=== PATIENT | female | born 1950 | race Caucasian/White ===

== ENCOUNTER 2016-12-21 10:40 | Emergency (ER) | payer OTHER ==
[~2016-12-21] VITALS: Ht 154.9 cm; Wt 52.5 kg
[2016-12-21 10:49] VITALS: Ht 154.9 cm; Wt 52.5 kg
[2016-12-21 11:13] LABS: URINE BLOOD (Dip) POC Trace-intact (NEGATIVE)
[2016-12-21] MEDS ORDERED: PHENAZOPYRIDINE 100 MG TAB PO STA (11:15)
[2016-12-21] MEDS ORDERED: CEPHALEXIN 500 MG CAP PO STA (11:15)
[2016-12-21] MEDS ORDERED: CEPH-443 PO (11:18)
[2016-12-21] MEDS ORDERED: PHEN-538 PO (11:18)
--- NOTE | 2016-12-21 11:56 | ERD ---
ER Documentation Chief Complaint Date/Time DATE: 12/21/16 TIME: 11:52 Chief Complaint vaginal pain,scant vaginal bleeding x3 days HPI This is a 66-year-old female with a history of osteoporosis and hyperlipidemia presenting to the emergency department complaining of vaginal pain and painful urination for the past 3 days. Patient states that she noticed mild hematuria last night. Patient admits to having pressure-like pelvic pain rating it moderate in severity. She denies any fevers or flank pain. Patient states that she has not tried any medications today, she took Tylenol last night without any relief. She denies any vaginal discharge ROS All systems reviewed and are negative except as per history of present illness. Medications Home Meds Active Scripts Phenazopyridine Hcl* (Pyridium*) 200 Mg Tab, 200 MG PO TID Y for URINARY PAIN, # 6 TAB Prov:REYES DIANE PA-C 12/21/16 Cephalexin* (Keflex*) 500 Mg Capsule, 500 MG PO QID for 7 Days, CAP Prov:REYES DIANE PA-C 12/21/16 Allergies Allergies: Coded Allergies: No Known Allergy (Unverified , 12/21/16) PMhx/Soc Medical and Surgical Hx: pt denies Medical Hx, pt denies Surgical Hx Hx Alcohol Use: No Hx Substance Use: No Hx Tobacco Use: No Physical Exam Vitals Vital Signs Date Time Temp Pulse Resp B/P Pulse Ox O2 Delivery O2 Flow Rate FiO2 12/21/16 10:49 98.1 88 18 124/68 98 Physical Exam General: well-developed/well-nourished, in no apparent distress, non-toxic appearing HENT: NC/AT Eyes: Conjunctiva normal Neck: Supple Pulm: CTA bilaterally, normal breathing CV: Normal S1S2 GI: Soft, non-distended, normal bowel sounds, TTP on suprapubic region Back: No midline tenderness, no masses, No CVAT Ext: No clubbing, cyanosis, or edema Neuro: Alert and orientated Skin: intact, normal turgor Psych: Normal mood and mentation Results 24 hrs Laboratory Tests Test 12/21/16 11:13 Bedside Urine pH (LAB) 7.0 Bedside Urine Protein (LAB) Negative Bedside Urine Glucose (UA) Negative Bedside Urine Ketones (LAB) Negative Bedside Urine Blood Trace-intact Bedside Urine Nitrite (LAB) Negative Bedside Urine Leukocyte Esterase (L 1+ Current Medications Medications (Trade) Dose Ordered Sig/Laure Route PRN Reason Start Time Stop Time Status Last Admin Dose Admin Cephalexin (Keflex) 500 mg ONCE STAT PO 12/21/16 11:15 12/21/16 11:17 DC 12/21/16 11:43 Phenazopyridine HCl (Pyridium) 200 mg ONCE STAT PO 12/21/16 11:15 12/21/16 11:17 DC 12/21/16 11:43 Procedures/MDM This is a 66-year-old female with a history of osteoporosis and hyperlipidemia presenting to the emergency department complaining of vaginal pain and painful urination for the past 3 days. This is likely a urinary tract infection. Low suspicion for pyelonephritis, nephrolithiasis, ovarian torsion due to physical examination and diagnostic testing. I have also considered that patient may have uterine prolapse according to her history and I have discussed with her to follow-up with her SUPERVISOR CEREAL for further evaluation and management. Urine dipstick showed +1 leukocyte esterase, and a urine culture was sent out. In the ED patient was given Keflex and Pyridium. Patient was given a prescription for Keflex and Pyridium. Disposition: Patient hemodynamically stable for discharge. Prescriptions have been given to take as directed. Strict precautions were given to return to the ER if not improving as expected or for any worsening signs and symptoms Departure Diagnosis: Primary Impression: UTI (urinary tract infection) Condition: Stable Patient Instructions: Pelvic Organ Prolapse: Surgery for Uterine Prolapse, Understanding Urinary Tract Infections (UTIs) Referrals: [facility]PER[facility] [place] [id number] [facility] [address] [place] [address] [phone] OFFICE FAX HIGINIO BRAND [address] [place], [place] [phone] [place] [place] [address] [place], [place] [phone] ANTHONY ELLER [address] [facility], [facility] [address] [place] [address] MASHA CALIX [address] [place], [place] [phone] CLINICA DEMOTTE [address] [place], [place] [phone] [address] [facility] [id number] - MOUNIKA REED [address], [facility] [address] [address] ALDRICH, DEMETRIS [address] [facility]. [address], [facility] [address] [address] GARCIA, F[place] [address] [place], [place] [phone] [facility] () Usted se martinez hecho un examen mdico de control que le indica que no est en kamille condicin que requiera tratamiento urgente en el Departamento de Emergencia. Un estudio ms profundo y el tratamiento de matamoros condicin pueden esperar sin ningn riesgo hasta que usted sea atendida/o en el consultorio de matamoros mdico o kamille cl yessica. Es responsabilidad suya arreglar kamille citlaly para el seguimiento del mamta. MANEJO DE CONDICIONES NO URGENTES EN EL FUTURO 1) Si usted tiene un mdico de atencin primaria: Usted debera llamar a matamoros mdico de atencin primaria antes de venir al departamento de emergencia. Despus de las horas de consultorio, matamoros doctor o matamoros asociado/a est disponible por telfono. El mdico o enfermero de kennedi en el servicio telefnico puede asesorarle por lilo medio para atender el problema, o mamta contrario se puede programar kamille citlaly. 2) Si usted no tiene un mdico de atencin primaria: Llame al mdico o clnica de referencia que aparece abajo skip las horas de consultorio para hacer kamille citlaly para que le vean. CLINICAS: [facility] [phone] [facility] [phone] [place] [facility] [phone] [place] [address] [phone] [place] [address] [phone] [place] [phone] Additional Instructions: Visite a matamoros mdico maana para un EXAMEN.Regrese a estas instalaciones si no se mejora ilir esperbamos o ilir le dijimos. Specialist:Usted tiene kamille condicin mdica que requiere que kasandra a un especialista dentro de los prximos 1-2 wolfe.POR FAVOR,CON MATAMOROS SEGUIMIENTO DE PRIMARIA PHSICIAN refferal. SI USTED NO TIENE UN MDICO GENERAL Y / O USTED NO PUEDE PAGAR sangeeta a un mdico,los siguientes escudero RECURSOS sido suministrado a usted. ES MATAMOROS RESPONSABILIDAD PARA SER VISTOS POR EL ESPECIALISTA: [place] toda la medicina shayy y ilir se le indic. Regrese a estas instalaciones si no se mejora ilir esperbamos o ilir le dijimos. REYES DIANE PA-C Dec 21, 2016 11:55
[2016-12-21 12:11] VITALS: BP 118/68; PULSE 77; RESP 18
== END 2016-12-21 12:12 | disposition home or self-care (01) ==
LOC: FTE 10:40
DX: N39.0 Urinary tract infection, site not specified (principal)
CPT/HCPCS: 81003; 87086; 99284

== ENCOUNTER 2017-01-09 11:01 | Emergency (ER) | payer OTHER ==
[~2017-01-09] VITALS: Ht 157.5 cm; Wt 53.0 kg
[~2017-01-09 11:01] MED LIST: CEPH-443 PO; PHEN-538 PO
[2017-01-09 11:03] VITALS: Ht 157.5 cm; Wt 53.0 kg
--- NOTE | 2017-01-09 14:03 | ERD ---
ER Documentation Chief Complaint Date/Time DATE: 01/09/17 TIME: 13:56 Chief Complaint Pt dx with UTI X 15 days..finished antibiotics, symptoms persists. HPI Patient is a 66-year-old female with no past medical history who presents to the ED with dysuria on and off for the last 15 days. She states that she was here 2 weeks ago and was given Keflex. She stated that she followed up with her primary care, a CT was ordered as well as a urine and she states that she was given an antibiotic, unsure of the name. She states that she went to [facility] to get a prescription filled. However she states that she still has some mild dysuria and occasional hematuria. She states that her CT scan is read by radiologist was unremarkable and showed hiatal hernia and cholelithiasis. She denies back pain or abdominal pain. She denies nausea, vomiting or diarrhea. She denies chest pain, shortness of breath or difficulty breathing. She denies headache or dizziness. She denies abnormal vaginal discharge. ROS All systems reviewed and are negative except as per history of present illness. Medications Home Meds Active Scripts Nitrofurantoin Monohyd Macrocr* (Macrobid*) 100 Mg Capsr, 100 MG PO BID for 14 Days, CAP Prov:BOBBI VIVEROS PA-C 01/09/17 Phenazopyridine Hcl* (Pyridium*) 200 Mg Tab, 200 MG PO TID Y for URINARY PAIN, # 6 TAB Prov:REYES DIANE PA-C 12/21/16 Cephalexin* (Keflex*) 500 Mg Capsule, 500 MG PO QID for 7 Days, CAP Prov:REYES DIANE PA-C 12/21/16 Allergies Allergies: Coded Allergies: No Known Allergy (Unverified , 12/21/16) PMhx/Soc Medical and Surgical Hx: pt denies Medical Hx, pt denies Surgical Hx History of Surgery: No Anesthesia Reaction: No Hx Neurological Disorder: No Hx Respiratory Disorders: No Hx Cardiac Disorders: No Hx Psychiatric Problems: No Hx Miscellaneous Medical Probl: No Hx Alcohol Use: No Hx Substance Use: No Hx Tobacco Use: No Physical Exam Vitals Vital Signs Date Time Temp Pulse Resp B/P Pulse Ox O2 Delivery O2 Flow Rate FiO2 01/09/17 11:03 98.2 105 18 131/70 98 Physical Exam GENERAL: Well-developed, well-nourished female. Appears in no acute distress. HEAD: Normocephalic, atraumatic. EYES: Pupils are equally reactive bilaterally. EOMs grossly intact. No conjunctival erythema. ENT: Moist mucous membranes. No uvula deviation. No kissing tonsils. No exudates. NECK: Supple. No lymphadenopathy or thyromegaly. No meningismus. negative kernig. negative brudinski. LUNG: Clear to auscultation bilaterally. No rhonchi, wheezing, rales or coarse breath sounds. HEART: Regular rate and rhythm. No murmurs, rubs or gallops. Extremities: Equal pulses bilaterally. No peripheral clubbing, cyanosis or edema. No unilateral leg swelling. NEUROLOGIC: Alert and oriented. Moving all four extremities. 5/5 strength in all extremities. Normal speech. Steady gait. SKIN: Normal color. Warm and dry. No rashes or lesions. Capillary refill < 2 seconds Results 24 hrs Laboratory Tests Test 01/09/17 13:37 Urine Color LT. YELLOW Urine Clarity CLEAR Urine pH 5.5 Urine Specific [place] 1.010 Urine Ketones NEGATIVE Urine Nitrite NEGATIVE Urine Bilirubin NEGATIVE Urine Urobilinogen 0.2 E.U./dL Urine Leukocyte Esterase 1+ Urine Microscopic RBC NONE SEEN/HPF Urine Microscopic WBC 0-2/HPF Urine Squamous Epithelial Cells FEW Urine Hemoglobin NEGATIVE Urine Glucose NEGATIVE% Urine Total Protein NEGATIVE Procedures/MDM ER COURSE: I kept the patient and/or family informed of laboratory and diagnostic imaging results throughout the emergency room course. LABORATORY STUDIES Urinalysis shows 1+ leukocytes with no hematuria or nitrites. MEDICAL DECISION MAKING: This is a 66-year-old female who presents with dysuria on and off 15 days. Vital signs were reviewed. Patient is afebrile. Patient is not hypoxic. Patient 's urine shows. Patient showed me a copy of her CT scan that was performed on . Her CT scan is read by radiologist Dr. NACHO VALLADARES on 12/28/2016 shows no acute findings. Cholelithiasis. Small hiatal hernia. I do not think any further imaging studies or blood work were necessary at this time. Low suspicion for ovarian torsion, PID, tuboovarian abscess, ectopic , bowel obstruction, pyelonephritis, appendicitis, cervicitis, septic , molar , HELLP syndromeI called the pharmacist mary hannon where she had received her most recent prescription. I did confirm that she was on Cipro for 10 days. Patient's urinalysis shows 1+ leukocytes with no hematuria or nitrates. I will be treating the patient with Macrobid however patient does need to follow-up with urologist for further evaluation. DISCHARGE: At this time, patient is stable for discharge and outpatient management with no new complaints during the ER course. Patient was sent home with Antwanbinataliya and names of urologists in the area that patient can follow-up with. Patient will be discharged home with instructions to recheck for new or worsening symptoms such as fever, nausea, weakness, LOC and to follow up with primary care in the next 1-2 days. Patient was advised to return to the ER for any new or worsening symptoms. Plan was discussed and patient and/or family understands and agrees. Home instructions were given. Departure Diagnosis: Primary Impression: Dysuria Condition: Stable BOBBI VIVEROS PA-C January 09, 2017 14:03
[2017-01-09 14:09] LABS: ADD UMIC YES; URINE BILIRUBIN (Dip) NEGATIVE (NEGATIVE); URINE BLOOD (Dip) NEGATIVE (NEGATIVE); URINE COLOR LT. YELLOW (YELLOW); URINE GLUCOSE (Dip) NEGATIVE (NEGATIVE); URINE KETONES (Dip) NEGATIVE (NEGATIVE); URINE LEUKOCYTE ESTERASE (Dip) 1+ (NEGATIVE); URINE NITRITE (Dip) NEGATIVE (NEGATIVE); URINE TOTAL PROTEIN (Dip) NEGATIVE (NEGATIVE); URINE UROBILINOGEN (Dip) 0.2 E.U./dL (0.1-1.0)
[2017-01-09 14:20] LABS: SQUAMOUS EPITHELIAL CELL,UR FEW; URINE RBCS NONE SEEN /HPF (0)
[2017-01-09] MEDS ORDERED: NITR-58 PO (14:32)
== END 2017-01-09 14:33 | disposition home or self-care (01) ==
LOC: FTE 11:01
DX: R30.0 Dysuria (principal)
CPT/HCPCS: 81001; 81003; 87086; 99283

== ENCOUNTER 2017-02-12 04:20 | Emergency (ER) | payer OTHER ==
[~2017-02-12] VITALS: Ht 157.5 cm; Wt 52.7 kg
[~2017-02-12 04:20] MED LIST changes: +NITR-58 PO
[2017-02-12 04:23] VITALS: Ht 157.5 cm; Wt 52.7 kg
[2017-02-12] MEDS ORDERED: morphine 4 MG/ML VIAL IV STA (04:36)
[2017-02-12] MEDS ORDERED: ONDANSETRON 4 MG INJ IV STA (04:36)
[2017-02-12] MEDS ORDERED: SOD CHLORIDE 0.9% 1,000 ML IV STA (04:36)
[2017-02-12] MEDS ORDERED: FAMOTIDINE 20 MG INJ IV STA (04:36)
[2017-02-12 05:14] LABS: ADD SCAN DIFF NO
[2017-02-12 05:21] LABS: BASOPHILS % 0.3 % (0.0-2.0); EOSINOPHILS # 0.1 10^3/ul (0.0-0.5); EOSINOPHILS % 1.3 % (0.0-7.0); HEMATOCRIT 42.3 % (37.0-47.0); HEMOGLOBIN 14.1 g/dl (12.0-16.0); LYMPHOCYTES # 2.8 10^3/ul (0.8-2.9); LYMPHOCYTES % 26.1 % (15.0-51.0); MEAN CORPUSCULAR HEMOGLOBIN 29.1 pg (29.0-33.0); MEAN CORPUSCULAR HGB CONC 33.3 g/dl (32.0-37.0); MEAN CORPUSCULAR VOLUME 87.4 fl (82.0-101.0); MEAN PLATELET VOLUME 9.6 fl (7.4-10.4); MONOCYTE # 0.6 10^3/ul (0.3-0.9); MONOCYTES % 5.8 % (0.0-11.0); NEUTROPHILS % 66.2 % (39.0-77.0); PLATELET COUNT 361 10^3/UL (140-415); RED BLOOD COUNT 4.84 10^6/ul (4.20-5.40); RED CELL DISTRIBUTION WIDTH 12.5 % (11.5-14.5); WHITE BLOOD COUNT 10.5 10^3/ul (4.8-10.8)
[2017-02-12] MEDS ORDERED: HYDROmorphONE 1 MG/ML SYG IV PRN (05:30)
[2017-02-12] MEDS ORDERED: DEXTROSE 50% 50 ML SYRINGE IV PRN (05:30)
[2017-02-12 05:40] LABS: ALBUMIN 5.2 g/dl (3.3-4.9); ALBUMIN/GLOBULIN RATIO 1.48; BILIRUBIN,INDIRECT 0.3 mg/dl (0-1.1); BILIRUBIN,TOTAL 0.3 mg/dl (0.2-1.3); CALCIUM 9.7 mg/dl (8.4-10.2); CREATININE 0.72 mg/dl (0.44-1.00); POTASSIUM 3.5 mmol/L (3.5-5.1); TOTAL PROTEIN 8.7 g/dl (6.1-8.1)
--- NOTE | 2017-02-12 05:40 | ERD ---
ER Documentation Chief Complaint Date/Time DATE: 02/12/17 TIME: 05:34 Chief Complaint RT FLANK PAIN X 3 DAYS, NAUSEA, DYSURIA/RETENTION. CHOLECYSTECTOMY 02/09 HPI This is a 66-year-old female presents to the emergency room for evaluation of abdominal pain, flank pain nausea and vomiting for the past 3 days. This patient does state that she has a history of uterine prolapse. The patient is lying trauma to the area, denies any active bleeding from the site and came to the emergency room for evaluation. ROS All systems reviewed and are negative except as per history of present illness. Medications Home Meds Active Scripts Nitrofurantoin Monohyd Macrocr* (Macrobid*) 100 Mg Capsr, 100 MG PO BID for 14 Days, CAP Prov:BOBBI VIVEROS PA-C 01/09/17 Phenazopyridine Hcl* (Pyridium*) 200 Mg Tab, 200 MG PO TID Y for URINARY PAIN, # 6 TAB Prov:REYES DIANE PA-C 12/21/16 Cephalexin* (Keflex*) 500 Mg Capsule, 500 MG PO QID for 7 Days, CAP Prov:REYES DIANEC 12/21/16 Allergies Allergies: Coded Allergies: No Known Allergy (Unverified , 12/21/16) PMhx/Soc History of Surgery: No Anesthesia Reaction: No Hx Neurological Disorder: No Hx Respiratory Disorders: No Hx Cardiac Disorders: No Hx Psychiatric Problems: No Hx Miscellaneous Medical Probl: Yes (prolapse,cholecystitis) Hx Alcohol Use: No Hx Substance Use: No Hx Tobacco Use: No Smoking Status: Never smoker Physical Exam Vitals Vital Signs Date Time Temp Pulse Resp B/P Pulse Ox O2 Delivery O2 Flow Rate FiO2 02/12/17 04:23 98.0 150 22 172/112 96 Physical Exam INITIAL VITAL SIGNS: Reviewed by me GENERAL: The patient is well developed and appropriate for usual state of health in no apparent distress HEENT: Pupils equal, round, and reactive to light. EOMI. There is no scleral icterus. NECK: C-spine is soft and supple, there is no meningismus. There is no cervical lymphadenopathy. LUNGS: Clear to auscultation bilaterally. There are no rales, wheezes or rhonchi. HEART: Regular rate and rhythm, no murmurs, clicks, rubs or gallops. ABDOMEN: Soft, non-tender, non-distended. There are bowel sounds in all four quadrants. No rebound or guarding. EXTREMITIES: There is no peripheral cyanosis or edema. No focal swelling or erythema. NEUROLOGICAL: The patient moves all four extremities with 5/5 strength. Cranial nerves II - XII are intact. Normal gait. Alert and oriented SKIN: There is no apparent rash or petechiae. exam: Prolapsed uterus protruding through the vaginal introitus HEME/LYMPHATIC: There is no evidence of excessive bruising or lymphedema. PSYCHIATRIC: The patient does not appear anxious or depressed. Results 24 hrs Current Medications Medications (Trade) Dose Ordered Sig/Laure Route PRN Reason Start Time Stop Time Status Last Admin Dose Admin Sodium Chloride (NS) 1,000 ml @ 1,000 mls/hr Q1H STAT IV 02/12/17 04:36 02/12/17 05:35 02/12/17 04:53 Morphine Sulfate (morphine) 4 mg ONCE STAT IV 02/12/17 04:36 02/12/17 04:38 DC 02/12/17 04:52 Ondansetron HCl (Zofran Inj) 4 mg ONCE STAT IV 02/12/17 04:36 02/12/17 04:38 DC 02/12/17 04:51 Famotidine (Pepcid Iv) 20 mg ONCE STAT IV 02/12/17 04:36 02/12/17 04:39 DC 02/12/17 04:51 Hydromorphone HCl (Dilaudid) 1 mg Q3 PRN IV PAIN LEVEL 7-10 02/12/17 05:30 02/12/17 05:30 DC Dextrose (D50w Syringe) 25 ml PRN PRN IV DECREASED GLUCOSE 02/12/17 05:30 02/12/17 05:30 DC Procedures/MDM CT abdomen pelvis without: Pending This is a 66-year-old female presents to the emergency room for evaluation of pelvic pain. I did a pelvic examination on this patient she did have uterine prolapse. This patient was in extreme amount of pain. I did give this patient morphine and lab work was obtained. This patient does state that she has seen a specialist in [place] for this and supposed to have a scheduled surgery in the future as an unknown date. Lab work was obtained which is within normal limits at this time. CT of the abdomen and pelvis was also ordered and is pending at this time. I did contact her BIOPHYSICS TEACHER specialist Dr. miner who agrees to come evaluate this patient here in the emergency room. This patient' s CAT scan will be signed out to the oncoming physician Dr. Abad for final disposition. Departure Diagnosis: Primary Impression: Uterine prolapse Additional Impression: Flank pain Condition: Stable MANISHA KUMAR DO Feb 12, 2017 05:39
[2017-02-12 05:52] LABS: ADD UMIC YES; UR BILIRUBIN (Dip) NEGATIVE (NEGATIVE); UR BLOOD (Dip) TRACE (NEGATIVE); UR CLARITY CLEAR (CLEAR); UR COLOR LT. YELLOW (YELLOW); UR GLUCOSE (Dip) NEGATIVE (NEGATIVE); UR KETONES (Dip) NEGATIVE (NEGATIVE); UR LEUKOCYTE ESTERASE (Dip) TRACE (NEGATIVE); UR NITRITE (Dip) NEGATIVE (NEGATIVE); UR TOTAL PROTEIN (Dip) NEGATIVE (NEGATIVE); UR UROBILINOGEN (Dip) 0.2 E.U./dL (0.1-1.0)
[2017-02-12 06:05] LABS: UR SQUAMOUS EPITHELIAL CELL RARE; URINE RBCS 0-2 /HPF (0)
--- NOTE | 2017-02-12 06:08 | QN ---
Documentation Comment 66 yo presents with uterine prolapse. She has had this issue for 2 months and has an appointment for a pessary fitting on Monday with her principal process engineer. She is a poor historian and c/o "severe pain" even after the uterus was replaced. VS: 172/112, 150, 98.0 sono: nml sized uterus prolapsed through vagina; 3.2cm fundal fibroid; atrophic ovaries Abdomen- soft, n/t VE: uterus prolpased; easily replaced PMH- patient denies medical problems and surgeries but is a poor historian. She states she had a UTI and finished abx a week or two ago NKDA A/P: ER physician stated patient is ordered for a CT scan to r/o other sources of the pain Uterus was replaced, but will continue to prolapse until pessary fitting tomorrow; this is an outpatient procedure Reconsult monotype setter if abnormal finidings on CT scan LEEANNA TORRES MD Feb 12, 2017 06:08
[2017-02-12 06:22] VITALS: BP 127/83; PULSE 88; RESP 14
--- NOTE | 2017-02-12 06:29 | RADRPT ---
PROCEDURE: CT Abdomen and pelvis without contrast. CLINICAL INDICATION: Abdominal pain. TECHNIQUE: CT scan of the abdomen and pelvis was performed on a multi-detector high-resolution CT scanner. Contiguous axial images were obtained from the lung bases to the ischial tuberosities wit hout intravenous contrast. Coronal and sagittal reformatted images were also obtained. Images were reviewed on the PACS workstation. One or more of the following dose reduction techniques were used: - Automated exposure control. - Adjustment of the mA and/or kV according to patient size. - Use of iterative reconstruction technique. Exam CTD/vol = 6.32 mGy. Total exam DLP = 352.08 mGy-cm. COMPARISON: None. FINDINGS: Evaluation of the lung bases demonstrates mild bibasilar atelectasis. Abdomen: The liver is normal in size. There is no focal mass or dilatation of the biliary tree. T he gallbladder is not distended. Multiple gallstones are identified. The spleen, pancreas and bilat eral adrenal glands are within normal limits. Bilateral kidneys are normal in size with no contour deforming mass identified. There is no radiopaque renal or ureteral calculus identified. There is moderate dilatation of the right renal pelvis. There is mild dilatation of the left renal pelvis. There is mild hydronephrosis bilaterally. There is no retroperitoneal adenopathy. The abdominal ao rta is of normal caliber with scattered atherosclerotic calcifications. There is moderate retained stool within the colon. There is no bowel obstruction or free air. A no rmal appendix is identified. There are scattered colonic diverticuli without evidence of diverticul itis. There is no ascites. Pelvis: The bladder is moderately distended. The uterus and adnexa are within normal limits. Ther e is no significant pelvic adenopathy or free fluid. Evaluation of the osseous structures demonstrates no suspicious lytic or blastic lesion. IMPRESSION: Bilateral mild hydronephrosis with moderate right and mild left renal pelvis dilatation. There is mo derate distension of the bladder. Bladder decompression is suggested. Moderate retained stool within the colon. Scattered colonic diverticuli without evidence of diverticulitis. Cholelithiasis. Mild bibasilar atelectasis. Vascular calcifications reflective of atherosclerosis. .Piotr Rashid MD, MD Date Time Electronically viewed and signed by .Piotr Rashid MD, MD on 02/12/2017 06:29 .T/
--- NOTE | 2017-02-12 06:57 | EN ---
Date/Time of Note Date/Time of Note DATE: 02/12/17 TIME: 06:55 ER Progress Note Patient was signed out to me by Dr. Rodriguez pending labs and CT abdomen and pelvis. All her labs were within normal limits and there is no evidence of UTI. Her CT did show evidence of mild constipation and mild to moderate hydronephrosis bilaterally. However her renal function is normal. Given her history of uterine prolapse, for which she is to have surgery this week, I suspect her hydronephrosis is secondary to this. At this time the patient is stable and is appropriate for discharge and continued outpatient follow-up and management. Return precautions were given. Her heart rate was initially elevated when she arrived but is improved and within normal limits now. She states her pain is controlled. Patient was discharged in a stable condition with a prescription for MiraLAX. JALEN CARTER MD Feb 12, 2017 06:57
[2017-02-12] MEDS ORDERED: POLY17PO6 PO (06:59)
== END 2017-02-12 08:43 | disposition home or self-care (01) ==
LOC: E/R 04:20
DX: N81.4 Uterovaginal prolapse, unspecified (principal); R40.2252 Coma scale, best verbal response, oriented, at arrival to emergency department; R11.2 Nausea with vomiting, unspecified; R40.2142 Coma scale, eyes open, spontaneous, at arrival to emergency department; R40.2362 Coma scale, best motor response, obeys commands, at arrival to emergency department
CPT/HCPCS: 36415; 74176; 80053; 81001; 83690; 85025; 96374; 96375; 99285; J2270; J2405; J7030

== ENCOUNTER 2017-02-18 15:01 | Emergency (ER) | payer OTHER ==
[~2017-02-18] VITALS: Wt 50.0 kg
[~2017-02-18 15:01] MED LIST changes: +POLY17PO6 PO
[2017-02-18] MEDS ORDERED: CEFTRIAXONE 1 GM/50 ML (PMX) 50 ML IVPB STA (15:42)
[2017-02-18] MEDS ORDERED: SOD CHLORIDE 0.9% 1,000 ML IV STA (15:42)
[2017-02-18] MEDS ORDERED: [UNRECOGNIZED DRUG - CODE] PO (15:58)
[2017-02-18] MEDS ORDERED: ACET1TAB40 PO (15:58)
[2017-02-18] MEDS ORDERED: OXYC-279 PO (15:58)
--- NOTE | 2017-02-18 16:13 | ERA ---
ER Documentation Chief Complaint Date/Time DATE: 02/18/17 TIME: 16:10 Chief Complaint unable to urinate x3 hours had cholecystectomy 02/17 HPI 66-year-old woman presents with suprapubic discomfort and swelling 1 day and complains of urinary retention. She is status post laparoscopic cholecystectomy a few days ago. She also has a history of uterine prolapse. She denies vaginal bleeding or vaginal discharge, no blood per rectum or melena , no complaints of chest pain or shortness of breath, no fevers or chills. ROS All systems reviewed and are negative except as per history of present illness. Medications Home Meds Active Scripts Naproxen* (Naprosyn*) 500 Mg Tablet, 500 MG PO BID Y for PAIN AND/OR INFLAMMATION, #30 TAB Prov:HERMINIO ROMERO MD 02/18/17 Reported Medications Oxycodone HCl/Acetaminophen (Percocet 5-325 mg Tablet) 1 Each Tablet, 1 EACH PO Q6 Y for SEVERE PAIN LEVEL 7-10, TAB 02/18/17 Acetaminophen with Codeine (Acetaminophen-Cod #3 Tablet) 1 Each Tablet, 1 TAB PO Q6H Y for SEVERE PAIN LEVEL 7-10, #7 TAB 02/18/17 Ampicillin* (Ampicillin*) 250 Mg Capsule, 250 MG PO Q8, CAP 02/18/17 Discontinued Scripts Polyethylene Glycol* (Miralax*) 17 Gm Powd.pack, 17 GM PO DAILY, #20 Prov:JALEN CARTER MD 02/12/17 Nitrofurantoin Monohyd Macrocr* (Macrobid*) 100 Mg Capsr, 100 MG PO BID for 14 Days, CAP Prov:BOBBI VIVEROS PA-C 01/09/17 Phenazopyridine Hcl* (Pyridium*) 200 Mg Tab, 200 MG PO TID Y for URINARY PAIN, # 6 TAB Prov:REYES DIANE PA-C 12/21/16 Cephalexin* (Keflex*) 500 Mg Capsule, 500 MG PO QID for 7 Days, CAP Prov:REYES DIANE PA-C 12/21/16 Allergies Allergies: Coded Allergies: No Known Allergy (Unverified , 12/21/16) PMhx/Soc Uterine prolapse, recent cholecystectomy History of Surgery: No Anesthesia Reaction: No Hx Neurological Disorder: No Hx Respiratory Disorders: No Hx Cardiac Disorders: No Hx Psychiatric Problems: No Hx Miscellaneous Medical Probl: Yes (prolapse,cholecystitis) Hx Alcohol Use: No Hx Substance Use: No Hx Tobacco Use: No FmHx Family History: No diabetes Physical Exam Vitals Vital Signs Date Time Temp Pulse Resp B/P Pulse Ox O2 Delivery O2 Flow Rate FiO2 02/18/17 17:26 95 20 138/68 95 Room Air 02/18/17 16:46 105 20 145/77 95 Room Air 02/18/17 15:08 99.5 116 20 149/81 95 Physical Exam GENERAL: Well-developed, well-nourished, well-hydrated, in no apparent distress , looks nontoxic in appearance HEENT: Moist mucous membranes, pink conjunctiva, no cervical spine tenderness or step-off deformities, no goiter, no jaundice or icterus, extraocular movements intact without pain. No submandibular induration, and no pharyngeal erythema NEURO: Alert and oriented 3, cranial nerves II through XII intact bilaterally, pupils equal round reactive to light, no focal deficits or facial asymmetry, sensation intact distally Strength 5/5 in upper and lower extremities bilaterally CARDIAC: Regular rate and rhythm, no murmurs rubs or gallops LUNGS: Clear bilaterally no wheezing crackles or stridor ABDOMEN: Soft nontender, no guarding, no rigidity, no rebound, no psoas sign no obturator sign. Normoactive bowel sounds SKIN: Warm and dry to touch, no abrasions, contusions, or hematomas, no lacerations, no ecchymosis, no target lesions, and without ulcers EXTREMITIES: No clubbing cyanosis or edema, calves are bilaterally symmetrical, no Homans sign, no popliteal cord sign. Distal pulses equal and bilateral PSYCH: Normal affect without agitation or irritability Result Diagram: 02/18/17 1554 02/18/17 1554 Results 24 hrs Laboratory Tests Test 02/18/17 15:47 02/18/17 15:54 Urine Color STRAW Urine Clarity CLEAR Urine pH 7.0 Urine Specific [place] 1.005 Urine Ketones NEGATIVEmg/dL Urine Nitrite NEGATIVEmg/dL Urine Bilirubin NEGATIVEmg/dL Urine Urobilinogen NEGATIVEmg/dL Urine Leukocyte Esterase NEGATIVELeu/ul Urine Hemoglobin NEGATIVEmg/dL Urine Glucose NEGATIVEmg/dL Urine Total Protein NEGATIVEmg/dl White Blood Count 10.610^3/ul Red Blood Count 4.1210^6/ul Hemoglobin 12.3g/dl Hematocrit 37.0% Mean Corpuscular Volume 89.8fl Mean Corpuscular Hemoglobin 29.9pg Mean Corpuscular Hemoglobin Concent 33.2g/dl Red Cell Distribution Width 12.8% Platelet Count 88009^3/UL Mean Platelet Volume 10.0fl Neutrophils % 67.5% Lymphocytes % 21.9% Monocytes % 9.2% Eosinophils % 0.9% Basophils % 0.2% Nucleated Red Blood Cells % 0.0/100WBC Neutrophils # 7.210^3/ul Lymphocytes # 2.310^3/ul Monocytes # 1.010^3/ul Eosinophils # 0.110^3/ul Basophils # 0.010^3/ul Nucleated Red Blood Cells # 0.010^3/ul Sodium Level 142mmol/L Potassium Level 3.5mmol/L Chloride Level 105mmol/L Carbon Dioxide Level 26mmol/L Anion Gap 15 Blood Urea Nitrogen 10mg/dl Creatinine 0.69mg/dl Glucose Level 104mg/dl Calcium Level 9.6mg/dl Current Medications Medications (Trade) Dose Ordered Sig/Laure Route PRN Reason Start Time Stop Time Status Last Admin Dose Admin Sodium Chloride 1,000 ml @ 1,000 mls/hr Q1H STAT IV 02/18/17 15:42 02/18/17 16:41 DC 02/18/17 16:30 Ceftriaxone Sodium 50 ml @ 100 mls/hr ONCE STAT IVPB 02/18/17 15:42 02/18/17 16:11 DC 02/18/17 16:30 Vancomycin HCl (Vancocin) 250 ml @ 125 mls/hr ONCE IVPB 02/18/17 16:30 02/18/17 17:55 DC Ibuprofen (Motrin) 600 mg ONCE ONCE PO 02/18/17 16:30 02/18/17 16:31 DC 02/18/17 16:30 Procedures/MDM IV line was established patient was placed on alarm security or surveillance monitor rhythm strip revealed a sinus rhythm at about 70 bpm with upright P and T waves. Patient was afebrile. Blood and urine cultures have been ordered results are pending I will follow-up. For acute urinary retention a Elise catheter was placed. I reviewed recent urine cultures. Given the patient's symptoms and recent evidence of acute UTI with multiple antibiotic resistances I treated her here with ceftriaxone 1 g IV. Patient also received 1 L normal saline intravenously and ibuprofen 600 mg p.o. CBC was unremarkable, electrolytes normal, urine analysis was completely clear. Elise catheter was removed and patient will follow up with her PMD and surgeon for reevaluation as scheduled. Differential diagnoses considered, included but not limited to acute coronary syndrome, pulmonary embolism, aortic dissection, abdominal aortic aneurysm, sepsis, stroke, meningitis, encephalitis, pneumonia, appendicitis, cholecystitis , bowel obstruction, pyelonephritis, nephrolithiasis, cystitis, as well as metabolic, hematologic, and electrolyte abnormalities. As well as abscess, cellulitis, fractures, and dislocations. Patient feels much better at this time, and vital signs are normal, symptoms have improved. I did give strict instructions to return to the ED if symptoms continue or worsen, patient will otherwise follow-up with primary care physician. Patient understood instructions and agreed to plan. Disclaimer: Inadvertent spelling and grammatical errors are likely due to EHR/ dictation software use and do not reflect on the overall quality of patient care. Also, please note that the electronic time recorded on this note does not necessarily reflect the actual time of the patient encounter. Departure Diagnosis: Primary Impression: Retention of urine Additional Impression: Uterine prolapse Condition: Good HERMINIO ROMERO MD Feb 18, 2017 16:13
[2017-02-18 16:18] LABS: ADD UMIC NO; UR ASCORBIC ACID NEGATIVE (NEGATIVE); UR BILIRUBIN (Dip) NEGATIVE (NEGATIVE); UR BLOOD (Dip) NEGATIVE (NEGATIVE); UR CLARITY CLEAR (CLEAR); UR COLOR STRAW (YELLOW); UR GLUCOSE (Dip) NEGATIVE (NEGATIVE); UR KETONES (Dip) NEGATIVE (NEGATIVE); UR LEUKOCYTE ESTERASE (Dip) NEGATIVE Leu/ul (NEGATIVE); UR NITRITE (Dip) NEGATIVE (NEGATIVE); UR SPECIFIC GRAVITY (Dip) 1.005 (1.003-1.030); UR TOTAL PROTEIN (Dip) NEGATIVE (NEGATIVE); UR UROBILINOGEN (Dip) NEGATIVE (NEGATIVE)
[2017-02-18 16:25] LABS: ADD SCAN DIFF NO
[2017-02-18] MEDS ORDERED: VANCOMYCIN 1 GM (PMX) 250 ML IVPB SCH (16:30)
[2017-02-18] MEDS ORDERED: IBUPROFEN 600 MG TAB PO ONE (16:30)
[2017-02-18 16:31] LABS: BASOPHILS % 0.2 % (0.0-2.0); EOSINOPHILS # 0.1 10^3/ul (0.0-0.5); EOSINOPHILS % 0.9 % (0.0-7.0); HEMOGLOBIN 12.3 g/dl (12.0-16.0); LYMPHOCYTES # 2.3 10^3/ul (0.8-2.9); LYMPHOCYTES % 21.9 % (15.0-51.0); MEAN CORPUSCULAR HEMOGLOBIN 29.9 pg (29.0-33.0); MEAN CORPUSCULAR HGB CONC 33.2 g/dl (32.0-37.0); MEAN CORPUSCULAR VOLUME 89.8 fl (82.0-101.0); MONOCYTES % 9.2 % (0.0-11.0); NEUTROPHIL # 7.2 10^3/ul (1.6-7.5); NEUTROPHILS % 67.5 % (39.0-77.0); PLATELET COUNT 296 10^3/UL (140-415); RED BLOOD COUNT 4.12 10^6/ul (4.20-5.40); RED CELL DISTRIBUTION WIDTH 12.8 % (11.5-14.5); WHITE BLOOD COUNT 10.6 10^3/ul (4.8-10.8)
[2017-02-18 16:50] LABS: CALCIUM 9.6 mg/dl (8.4-10.2); CREATININE 0.69 mg/dl (0.44-1.00); POTASSIUM 3.5 mmol/L (3.5-5.1)
[2017-02-18] MEDS ORDERED: NAPR-260 PO (17:06)
[2017-02-18 17:26] VITALS: BP 138/68; PULSE 95; RESP 20
== END 2017-02-18 17:55 | disposition home or self-care (01) ==
LOC: E/R 15:01
DX: R33.9 Retention of urine, unspecified (principal); N81.4 Uterovaginal prolapse, unspecified
CPT/HCPCS: 36415; 51702; 80048; 81003; 85025; 87040; 87086; 96374; 99284; J0696; J3370; J7030

== ENCOUNTER 2017-02-19 22:04 | Emergency (ER) | payer OTHER ==
[~2017-02-19] VITALS: Ht 157.5 cm; Wt 53.0 kg
[~2017-02-19 22:04] MED LIST changes: +ACET1TAB40 PO; +NAPR-260 PO; +OXYC-279 PO; +[UNRECOGNIZED DRUG - CODE] PO
[2017-02-19 22:13] VITALS: Ht 157.5 cm; Wt 53.0 kg
[2017-02-19] MEDS ORDERED: ONDANSETRON 4 MG INJ IV STA (23:39)
[2017-02-19] MEDS ORDERED: SOD CHLORIDE 0.9% 1,000 ML IV STA (23:39)
[2017-02-19] MEDS ORDERED: morphine 4 MG/ML VIAL IV STA (23:39)
[2017-02-20 00:36] LABS: ADD SCAN DIFF NO
[2017-02-20 00:44] LABS: BASOPHILS % 0.2 % (0.0-2.0); EOSINOPHILS # 0.3 10^3/ul (0.0-0.5); EOSINOPHILS % 3.2 % (0.0-7.0); HEMATOCRIT 37.7 % (37.0-47.0); HEMOGLOBIN 12.2 g/dl (12.0-16.0); LYMPHOCYTES # 2.1 10^3/ul (0.8-2.9); LYMPHOCYTES % 25.9 % (15.0-51.0); MEAN CORPUSCULAR HGB CONC 32.4 g/dl (32.0-37.0); MEAN CORPUSCULAR VOLUME 89.8 fl (82.0-101.0); MEAN PLATELET VOLUME 9.9 fl (7.4-10.4); MONOCYTE # 0.9 10^3/ul (0.3-0.9); MONOCYTES % 10.8 % (0.0-11.0); NEUTROPHIL # 4.9 10^3/ul (1.6-7.5); NEUTROPHILS % 59.5 % (39.0-77.0); PLATELET COUNT 300 10^3/UL (140-415); RED CELL DISTRIBUTION WIDTH 13.1 % (11.5-14.5); WHITE BLOOD COUNT 8.2 10^3/ul (4.8-10.8)
[2017-02-20 00:57] LABS: ADD UMIC YES; UR ASCORBIC ACID NEGATIVE (NEGATIVE); UR BILIRUBIN (Dip) NEGATIVE (NEGATIVE); UR BLOOD (Dip) 3+ mg/dL (NEGATIVE); UR CLARITY CLEAR (CLEAR); UR COLOR STRAW (YELLOW); UR GLUCOSE (Dip) NEGATIVE (NEGATIVE); UR KETONES (Dip) NEGATIVE (NEGATIVE); UR LEUKOCYTE ESTERASE (Dip) TRACE Leu/ul (NEGATIVE); UR NITRITE (Dip) NEGATIVE (NEGATIVE); UR RBC 25 /HPF (0-5); UR SPECIFIC GRAVITY (Dip) 1.006 (1.003-1.030); UR TOTAL PROTEIN (Dip) NEGATIVE (NEGATIVE); UR UROBILINOGEN (Dip) NEGATIVE (NEGATIVE)
--- NOTE | 2017-02-20 01:00 | RADRPT ---
PROCEDURE: CT Abdomen and Pelvis without contrast. CLINICAL INDICATION: Abdominal pain. TECHNIQUE: A CT scan of the abdomen and pelvis was performed without intravenous contrast. Galdamez l and sagittal reformatted images were generated. Images were reviewed on a high-resolution PACS wor kstation. CTDIvol: 6.80 mGy. DLP: 364.62 mGy-cm. One or more of the following dose reduction techniques were used: - Automated exposure control. - Adjustment of the mA and/or kV according to patient size. - Use of iterative reconstruction technique. COMPARISON: 02/12/2017 FINDINGS: There is mild atelectasis in both lower lobes. Evaluation of the abdominal and pelvic viscera is limited by the lack of oral and intravenous contra st. The liver is unremarkable. The patient is status post cholecystectomy. The common bile duct is not dilated. The spleen is not enlarged. No pancreatic lesion is identified and there is no pancreatic d uctal dilatation. The adrenal glands are unremarkable. The kidneys are normal in size. There is no perinephric fat stranding. There is moderate bilateral h ydroureteronephrosis down to the urinary bladder, increased since the prior examination. No obstruct ing stone or mass is identified. There is a Elise catheter in place within the urinary bladder. The re is marked pelvic floor descent with inferior displacement of the urinary bladder, vagina, and rec alem below the pubococcygeal line. The small and large bowel are normal in caliber. There is no bowel wall thickening.There is minimal descending and sigmoid colon diverticulosis. The appendix is normal. No lymphadenopathy is identified. There is no ascites. No pneumoperitoneum is seen. There are mild t o moderate arterial calcifications. No suspicious osseous lesion is idenitified. There is grade 1 degenerative L5 anterolisthesis. IMPRESSION: 1. Moderate bilateral hydroureteronephrosis down to the urinary bladder, increased since the prior examination. No obstructing stone or mass is identified. 2. Marked pelvic floor descent with inferior displacement of the urinary bladder, vagina, and rectu m below the pubococcygeal line. This likely represents the etiology of the ureteral obstructions. 3. Elise catheter in place within the urinary bladder. 4. Status post cholecystectomy. 5. Mild to moderate atherosclerotic arterial calcifications. RPTAT: HTAR .Rasta Naranjo MD, MD Date Time Electronically viewed and signed by .Rasta Naranjo MD, on 02/20/2017 01:00 .R/
[2017-02-20 01:05] LABS: ALBUMIN 4.5 g/dl (3.3-4.9); ALBUMIN/GLOBULIN RATIO 1.36; BILIRUBIN,INDIRECT 0.1 mg/dl (0-1.1); BILIRUBIN,TOTAL 0.1 mg/dl (0.2-1.3); CREATININE 0.66 mg/dl (0.44-1.00); POTASSIUM 3.9 mmol/L (3.5-5.1); TOTAL PROTEIN 7.8 g/dl (6.1-8.1)
[2017-02-20 01:16] LABS: INR 0.88; PROTIME 11.9 Sec (12.2-14.2); PT RATIO 0.9
[2017-02-20 01:17] LABS: PARTIAL THROMBOPLASTIN TIME 27.2 Sec (25.0-35.0)
[2017-02-20] MEDS ORDERED: HYDR-902 PO (01:56)
[2017-02-20] MEDS ORDERED: CIPR500T4 PO (01:56)
--- NOTE | 2017-02-20 02:19 | ERD ---
ER Documentation Chief Complaint Date/Time DATE: 02/20/17 TIME: 02:09 Chief Complaint abd/vaginal pain x 2 days. Dimple 2 days ago HPI 66-year-old female who comes in abdominal bowel movement for 2 days. Cholecystectomy done 2 days ago. Elise cath in place secondary to urine retention 1 day ago. Continues to have pain in her bladder region. No other current complaints. Pain mild to moderate intensity. ROS All systems reviewed and are negative except as per history of present illness. Medications Home Meds Active Scripts Hydrocodone/Acetaminophen ([place] 10-325 Tablet) 1 Each Tablet, 1 TAB PO Q6H Y for PAIN, #7 TAB Prov:ARYAN SHORE 02/20/17 Ciprofloxacin Hcl* (Ciprofloxacin Hcl*) 500 Mg Tablet, 500 MG PO BID for 5 Days , TAB Prov:ARYAN SHORE 02/20/17 Naproxen* (Naprosyn*) 500 Mg Tablet, 500 MG PO BID Y for PAIN AND/OR INFLAMMATION, #30 TAB Prov:HERMINIO ROMERO MD 02/18/17 Reported Medications Oxycodone HCl/Acetaminophen (Percocet 5-325 mg Tablet) 1 Each Tablet, 1 EACH PO Q6 Y for SEVERE PAIN LEVEL 7-10, TAB 02/18/17 Acetaminophen with Codeine (Acetaminophen-Cod #3 Tablet) 1 Each Tablet, 1 TAB PO Q6H Y for SEVERE PAIN LEVEL 7-10, #7 TAB 02/18/17 Ampicillin* (Ampicillin*) 250 Mg Capsule, 250 MG PO Q8, CAP 02/18/17 Discontinued Scripts Polyethylene Glycol* (Miralax*) 17 Gm Powd.pack, 17 GM PO DAILY, #20 Prov:JALEN CARTER MD 02/12/17 Nitrofurantoin Monohyd Macrocr* (Macrobid*) 100 Mg Capsr, 100 MG PO BID for 14 Days, CAP Prov:BOBBI VIVEROS PA-C 01/09/17 Phenazopyridine Hcl* (Pyridium*) 200 Mg Tab, 200 MG PO TID Y for URINARY PAIN, # 6 TAB Prov:REYES DIANE PA-C 12/21/16 Cephalexin* (Keflex*) 500 Mg Capsule, 500 MG PO QID for 7 Days, CAP Prov:REYES DIANE PA-C 12/21/16 Allergies Allergies: Coded Allergies: No Known Allergy (Unverified , 12/21/16) PMhx/Soc History of Surgery: Yes (s/p lap dimple 02/17/17) Anesthesia Reaction: No Hx Neurological Disorder: No Hx Respiratory Disorders: No Hx Cardiac Disorders: No Hx Psychiatric Problems: No Hx Miscellaneous Medical Probl: Yes (prolapse,) Hx Alcohol Use: No Hx Substance Use: No Hx Tobacco Use: No Smoking Status: Never smoker Physical Exam Vitals Vital Signs Date Time Temp Pulse Resp B/P Pulse Ox O2 Delivery O2 Flow Rate FiO2 02/19/17 22:13 98.1 120 18 158/90 94 Physical Exam Const: [] Head: Atraumatic Eyes: Normal Conjunctiva ENT: Normal External Ears, Nose and Mouth. Neck: Full range of motion..~ No meningismus. Resp: Clear to auscultation bilaterally Cardio: Regular rate and rhythm, no murmurs Abd: Soft, non tender, non distended. Normal bowel sounds Skin: No petechiae or rashes Back: No midline or flank tenderness Ext: No cyanosis, or edema Neur: Awake and alert Psych: Normal Mood and Affect Result Diagram: 02/19/17 2354 02/19/17 2354 Results 24 hrs Laboratory Tests Test 02/19/17 23:54 White Blood Count 8.210^3/ul Red Blood Count 4.2010^6/ul Hemoglobin 12.2g/dl Hematocrit 37.7% Mean Corpuscular Volume 89.8fl Mean Corpuscular Hemoglobin 29.0pg Mean Corpuscular Hemoglobin Concent 32.4g/dl Red Cell Distribution Width 13.1% Platelet Count 90406^3/UL Mean Platelet Volume 9.9fl Neutrophils % 59.5% Lymphocytes % 25.9% Monocytes % 10.8% Eosinophils % 3.2% Basophils % 0.2% Nucleated Red Blood Cells % 0.0/100WBC Neutrophils # 4.910^3/ul Lymphocytes # 2.110^3/ul Monocytes # 0.910^3/ul Eosinophils # 0.310^3/ul Basophils # 0.010^3/ul Nucleated Red Blood Cells # 0.010^3/ul Prothrombin Time 11.9Sec Prothrombin Time Ratio 0.9 INR International Normalized Ratio 0.88 Activated Partial Thromboplast Time 27.2Sec Urine Color STRAW Urine Clarity CLEAR Urine pH 6.0 Urine Specific [place] 1.006 Urine Ketones NEGATIVEmg/dL Urine Nitrite NEGATIVEmg/dL Urine Bilirubin NEGATIVEmg/dL Urine Urobilinogen NEGATIVEmg/dL Urine Leukocyte Esterase TRACELeu/ul Urine Microscopic RBC 25/HPF Urine Microscopic WBC 2/HPF Urine Hemoglobin 3+mg/dL Urine Glucose NEGATIVEmg/dL Urine Total Protein NEGATIVEmg/dl Sodium Level 134mmol/L Potassium Level 3.9mmol/L Chloride Level 99mmol/L Carbon Dioxide Level 26mmol/L Anion Gap 13 Blood Urea Nitrogen 12mg/dl Creatinine 0.66mg/dl Glucose Level 101mg/dl Calcium Level 10.0mg/dl Total Bilirubin 0.1mg/dl Direct Bilirubin 0.00mg/dl Indirect Bilirubin 0.1mg/dl Aspartate Amino Transf (AST/SGOT) 140IU/L Alanine Aminotransferase (ALT/SGPT) 103IU/L Alkaline Phosphatase 129IU/L Total Protein 7.8g/dl Albumin 4.5g/dl Globulin 3.30g/dl Albumin/Globulin Ratio 1.36 Lipase 85U/L Current Medications Medications (Trade) Dose Ordered Sig/Laure Route PRN Reason Start Time Stop Time Status Last Admin Dose Admin Sodium Chloride (NS) 1,000 ml @ 1,000 mls/hr Q1H STAT IV 02/19/17 23:39 02/20/17 00:38 DC 02/20/17 00:00 Morphine Sulfate (morphine) 4 mg ONCE STAT IV 02/19/17 23:39 02/19/17 23:40 DC 02/20/17 00:00 Ondansetron HCl (Zofran Inj) 4 mg ONCE STAT IV 02/19/17 23:39 02/19/17 23:40 DC 02/20/17 00:00 Procedures/MDM Medical decision-makin for female pelvic pain. CT shows no new findings. Patient be discharged from [facility]. Follow-up with PCP. Return 8 hours for serial abdominal exams. Departure Diagnosis: Primary Impression: Retention of urine Condition: Stable Patient Instructions: Urinary Retention, Female MONEARYAN MacarioJakob Feb 20, 2017 02:18
== END 2017-02-20 02:49 | disposition home or self-care (01) ==
LOC: E/R 22:04
DX: R33.9 Retention of urine, unspecified (principal)
CPT/HCPCS: 36415; 74176; 80053; 81001; 83690; 85025; 85610; 85730; 87086; 96374; 96375; 99285; J2270; J2405; J7030

== ENCOUNTER 2017-03-27 12:02 | Emergency (ER) | payer OTHER ==
[~2017-03-27] VITALS: Wt 51.5 kg
[~2017-03-27 12:02] MED LIST changes: -CEPH-443 PO; +CIPR500T4 PO; +HYDR-902 PO; -NITR-58 PO; -PHEN-538 PO; -POLY17PO6 PO
[2017-03-27] MEDS ORDERED: OMEP20CA16 PO (16:04)
[2017-03-27] MEDS ORDERED: SIMV20TA PO (16:05)
[2017-03-27] MEDS ORDERED: ALEN70TA30 PO (16:06)
[2017-03-27 16:07] LABS: BASOPHILS % 0.4 % (0.0-2.0); EOSINOPHILS # 0.3 10^3/ul (0.0-0.5); EOSINOPHILS % 4.3 % (0.0-7.0); HEMATOCRIT 39.7 % (37.0-47.0); HEMOGLOBIN 13.3 g/dl (12.0-16.0); LYMPHOCYTES # 2.3 10^3/ul (0.8-2.9); LYMPHOCYTES % 33.4 % (15.0-51.0); MEAN CORPUSCULAR HEMOGLOBIN 29.6 pg (29.0-33.0); MEAN CORPUSCULAR HGB CONC 33.5 g/dl (32.0-37.0); MEAN CORPUSCULAR VOLUME 88.4 fl (82.0-101.0); MEAN PLATELET VOLUME 9.7 fl (7.4-10.4); MONOCYTE # 0.6 10^3/ul (0.3-0.9); NEUTROPHIL # 3.8 10^3/ul (1.6-7.5); NEUTROPHILS % 53.6 % (39.0-77.0); PLATELET COUNT 233 10^3/UL (140-415); RED BLOOD COUNT 4.49 10^6/ul (4.20-5.40); RED CELL DISTRIBUTION WIDTH 12.8 % (11.5-14.5)
[2017-03-27 16:28] LABS: ALANINE AMINOTRANSFERASE 30 IU/L (13-69); ALBUMIN 4.7 g/dl (3.3-4.9); ALBUMIN/GLOBULIN RATIO 1.38; ALKALINE PHOSPHATASE 98 IU/L (42-121); ANION GAP 21 (8-16); ASPARTATE AMINO TRANSFERASE 30 IU/L (15-46); BILIRUBIN,INDIRECT 0.1 mg/dl (0-1.1); BILIRUBIN,TOTAL 0.1 mg/dl (0.2-1.3); BLOOD UREA NITROGEN 17 mg/dl (7-20); CALCIUM 9.4 mg/dl (8.4-10.2); CARBON DIOXIDE 21 mmol/L (21-31); CHLORIDE 107 mmol/L (97-110); CREATINE KINASE 46 IU/L (23-200); GLUCOSE 93 mg/dl (70-220); POTASSIUM 3.8 mmol/L (3.5-5.1); SODIUM 145 mmol/L (135-144); TOTAL PROTEIN 8.1 g/dl (6.1-8.1)
[2017-03-27 16:38] LABS: B-TYPE NATRIURETIC PEPTIDE 39 PG/ML (0-125); CK-MB 0.58 ng/ml (0.0-2.4)
--- NOTE | 2017-03-27 16:40 | RADRPT ---
PROCEDURE: CT brain without contrast CLINICAL INDICATION: Numbness, headaches TECHNIQUE: CT of the brain without contrast performed on a multidetector CT scanner, with multiplan ar reformats. One or more of the following dose reduction techniques were used: Automated exposure control, adjustment in mA and / or kV according to patient size, use of iterative reconstructive jamison hnique. CTDIvol = 44 mGy; DLP = 720 mGy-cm. COMPARISON: None available FINDINGS: No acute intracranial hemorrhage is identified. No extra-axial fluid collection is seen. There is no mass effect. No midline shift is identified. The ventricles and sulci are mildly enlarged compatible with generalized volume loss. Minimal areas of hypodensity are seen in the periventricular - deep white matter which are nonspecif ic but suggestive of chronic small vessel ischemic changes. Chavez-white differentiation is preserved . Atherosclerotic calcifications of the intracranial internal carotid arteries are noted. Osseous structures are unremarkable. Mastoid air cells and imaged paranasal sinuses grossly clear. IMPRESSION: 1. No evidence of acute intracranial pathology. 2. Mild generalized volume loss, with minimal chronic small vessel ischemic changes. RPTAT: VV .Ismael Butterfield MD, MD Date Time Electronically viewed and signed by .Ismael Butterfield MD, MD on 03/27/2017 16:39 .O/
[2017-03-27 16:41] LABS: INR 0.9; PROTIME 12.1 Sec (12.2-14.2); PT RATIO 0.9
[2017-03-27 16:42] LABS: PARTIAL THROMBOPLASTIN TIME 25.8 Sec (25.0-35.0); TROPONIN-I < 0.012 ng/ml (0.00-0.12)
[2017-03-27] MEDS ORDERED: SOD CHLORIDE 0.9% 1,000 ML IV STA (17:10)
[2017-03-27] MEDS ORDERED: KETOROLAC 30 MG INJ IV STA (17:10)
[2017-03-27] MEDS ORDERED: ONDANSETRON 4 MG INJ IV STA (17:10)
--- NOTE | 2017-03-27 17:10 | RADRPT ---
PROCEDURE: XR Chest. CLINICAL INDICATION: Chest pain. TECHNIQUE: Single frontal view. COMPARISON: No prior study is available for comparison. FINDINGS: The lungs are clear. The heart size is normal. There is calcification in the aorta consistent with atherosclerosis. There is no pleural effusion. There is no pneumothorax. IMPRESSION: 1. Atherosclerosis. 2. Otherwise normal chest x-ray. RPTAT: QQ .Mike Barros MD, MD Date Time Electronically viewed and signed by .Mike Barros MD, on 03/27/2017 17:10 .R/
--- NOTE | 2017-03-27 17:10 | ERD ---
ER Documentation Chief Complaint Date/Time DATE: 03/27/17 TIME: 17:03 Chief Complaint DIZZINESS, NUMBNESS L ARM, L SIDE FACE X 2 DAYS; BILATERAL EAR PAIN HPI This is a very pleasant 66-year-old female presents to emergency department complaining of intermittent dizziness for the past 48 hours. She indicates that at the onset of her symptoms she also developed numbness and tingling of the left side of her face her left arm that has been persistent for 48 hours. She denies any recent remote trauma to her left upper extremity. She is right- handed dominant. She denies any difficulty with ambulation. She does state that she has been experiencing pain in both of her ears for the past 48 hours more prominent on the right than the left. She has had no fevers or shaking or chills. She indicates she has chronic urinary tract infections and is currently on antibiotics. She denies a headache. She denies any neck pain. She has no shortness of breath at rest or exertion. ROS All systems reviewed and are negative except as per history of present illness. Medications Home Meds Reported Medications Alendronate Sodium* (Fosamax*) 70 Mg Tablet, 70 MG PO Q7D, #4 TAB TAKE Q Monday03/27/17 Simvastatin* (Zocor*) 20 Mg Tablet, 20 MG PO QHS, #30 TAB 03/27/17 Omeprazole* (Omeprazole*) 20 Mg Capsule.dr, 20 MG PO DAILY, #30 CAP 03/27/17 Acetaminophen with Codeine (Acetaminophen-Cod #3 Tablet) 1 Each Tablet, 1 TAB PO Q6H Y for SEVERE PAIN LEVEL 7-10, #7 TAB 02/18/17 Discontinued Reported Medications Oxycodone HCl/Acetaminophen (Percocet 5-325 mg Tablet) 1 Each Tablet, 1 EACH PO Q6 Y for SEVERE PAIN LEVEL 7-10, TAB 02/18/17 Ampicillin* (Ampicillin*) 250 Mg Capsule, 250 MG PO Q8, CAP 02/18/17 Discontinued Scripts Hydrocodone/Acetaminophen ([place] 10-325 Tablet) 1 Each Tablet, 1 TAB PO Q6H Y for PAIN, #7 TAB Prov:ARYAN SHORE 02/20/17 Ciprofloxacin Hcl* (Ciprofloxacin Hcl*) 500 Mg Tablet, 500 MG PO BID for 5 Days , TAB Prov:ARYAN SHORE 02/20/17 Naproxen* (Naprosyn*) 500 Mg Tablet, 500 MG PO BID Y for PAIN AND/OR INFLAMMATION, #30 TAB Prov:HERMINIO ROMERO MD 02/18/17 Allergies Allergies: Coded Allergies: No Known Allergy (Unverified , 03/27/17) PMhx/Soc History of Surgery: Yes (s/p lap carlos 02/17/17) Anesthesia Reaction: No Hx Neurological Disorder: No Hx Respiratory Disorders: No Hx Cardiac Disorders: No Hx Psychiatric Problems: No Hx Miscellaneous Medical Probl: Yes (prolapse,) Hx Alcohol Use: No Hx Substance Use: No Hx Tobacco Use: No Smoking Status: Never smoker Physical Exam Vitals Vital Signs Date Time Temp Pulse Resp B/P Pulse Ox O2 Delivery O2 Flow Rate FiO2 03/27/17 16:32 Nasal Cannula 2 03/27/17 12:06 98.3 80 20 112/64 97 Physical Exam Constitutional:Well-developed. Well-nourished. HEENT:Normocephalic. Atraumatic.Pupils were equal round reactive to light. Moist mucous membranes.No tonsillar exudates. Cerumen impaction of the right ear. No bulging and erythema the left tympanic membrane. The posterior radicular tenderness. No tenderness with manipulation of the auricles bilaterally Neck: No nuchal rigidity. No lymphadenopathy. No posterior cervical spine tenderness or step-offs. Respiratory: Not using accessory muscles of respiration.Lungs were clear to auscultation bilaterally. No rhonchi. No rales. No wheezing. Cardiovascular: Regular rate regular rhythm.No murmurs. No rubs were appreciated.S1, S2 normal. Distal pulses are palpable 2+ bilaterally. GI: Abdomen was soft. Nontender. Non Distended. No pulsatile abdominal masses or bruits. No rebound. No guarding. Bowel sounds were present and normal. Muscle skeletal: Full range of motion of both the upper and lower extremities bilaterally.Normal muscle tone.No assymetrical calf tenderness or swelling. Skin: No petechia, no purpura. No lesions on the palms or the soles of the feet. No maculopapular rash. NEURO: Patient was alert, awake, orientated x3.No facial droop. Gait observed and normal with no ataxia.Speech had regular rate and rhythm. No focal neurological deficits sensation was intact to the bilateral face to sharp and dull as well as the bilateral upper and lower extremities. No pronator drift. Romberg sign negative. Result Diagram: 03/27/17 1600 03/27/17 1600 Results 24 hrs Laboratory Tests Test 03/27/17 16:00 White Blood Count 7.010^3/ul Red Blood Count 4.4910^6/ul Hemoglobin 13.3g/dl Hematocrit 39.7% Mean Corpuscular Volume 88.4fl Mean Corpuscular Hemoglobin 29.6pg Mean Corpuscular Hemoglobin Concent 33.5g/dl Red Cell Distribution Width 12.8% Platelet Count 55857^3/UL Mean Platelet Volume 9.7fl Neutrophils % 53.6% Lymphocytes % 33.4% Monocytes % 8.0% Eosinophils % 4.3% Basophils % 0.4% Nucleated Red Blood Cells % 0.0/100WBC Neutrophils # 3.810^3/ul Lymphocytes # 2.310^3/ul Monocytes # 0.610^3/ul Eosinophils # 0.310^3/ul Basophils # 0.010^3/ul Nucleated Red Blood Cells # 0.010^3/ul Prothrombin Time 12.1Sec Prothrombin Time Ratio 0.9 INR International Normalized Ratio 0.90 Activated Partial Thromboplast Time 25.8Sec Sodium Level 145mmol/L Potassium Level 3.8mmol/L Chloride Level 107mmol/L Carbon Dioxide Level 21mmol/L Anion Gap 21 Blood Urea Nitrogen 17mg/dl Creatinine 0.70mg/dl Glucose Level 93mg/dl Calcium Level 9.4mg/dl Total Bilirubin 0.1mg/dl Direct Bilirubin 0.00mg/dl Indirect Bilirubin 0.1mg/dl Aspartate Amino Transf (AST/SGOT) 30IU/L Alanine Aminotransferase (ALT/SGPT) 30IU/L Alkaline Phosphatase 98IU/L Creatine Kinase 46IU/L Creatine Kinase Index 1.3 Creatinine Kinase MB (Mass) 0.58ng/ml Troponin I < 0.012ng/ml B-Type Natriuretic Peptide 39PG/ML Total Protein 8.1g/dl Albumin 4.7g/dl Globulin 3.40g/dl Albumin/Globulin Ratio 1.38 Procedures/MDM This patient was seen and evaluated by myself. The patient presented to the emergency department complaining of dizziness. My differential diagnosis included but was not limited to hypovolemia, myocardial infarction, pulmonary embolism, hypoglycemia, hypoxia, anemia, vasovagal episode, hypothyroidism, anxiety, peripheral or central vertigo. The patient was placed on a cardiac cath technologist, continuous pulse oximetry and IV access established by nursing staff. The patient received a liter bolus of 0.9 normal saline. The patient is also complaining of intermittent numbness and tingling to the left side of her face and her left upper extremity. There is no physical exam findings to suggest an ischemic cerebrovascular accident at this time her temporal arteritis. The patient is serum impaction of the right ear which was drained in the emergency department. Afterwards I was able to visualize the tympanic membrane and there is no signs of otitis media or otitis externa. 12 Lead EKG tracing ordered and reviewed by myself showed: Normal sinus rhythm of 75 bpm and no arrhythmia. MT interval normal. QRS duration normal. No ST segment elevation No ST segment depression. No changes consistent with acute ischemia. I also obtained a CT scan of the patient's head which was reviewed with the radiologist myself indicated the followin. No evidence of acute intracranial pathology. 2. Mild generalized volume loss, with minimal chronic small vessel ischemic changes. Departure Diagnosis: Primary Impression: Arm paresthesia, left Additional Impressions: Facial paresthesia Dizziness Condition: Fair ROSSY SULTANA Mar 27, 2017 17:10
[2017-03-27 17:16] LABS: ADD UMIC YES; UR ASCORBIC ACID NEGATIVE (NEGATIVE); UR BACTERIA FEW /HPF (NONE SEEN); UR BILIRUBIN (Dip) NEGATIVE (NEGATIVE); UR BLOOD (Dip) 1+ mg/dL (NEGATIVE); UR CLARITY CLEAR (CLEAR); UR COLOR COLORLESS (YELLOW); UR GLUCOSE (Dip) NEGATIVE (NEGATIVE); UR KETONES (Dip) NEGATIVE (NEGATIVE); UR LEUKOCYTE ESTERASE (Dip) 1+ Leu/ul (NEGATIVE); UR NITRITE (Dip) NEGATIVE (NEGATIVE); UR RBC 1 /HPF (0-5); UR SPECIFIC GRAVITY (Dip) 1.003 (1.003-1.030); UR SQUAMOUS EPITHELIAL CELL FEW /HPF (FEW); UR TOTAL PROTEIN (Dip) NEGATIVE (NEGATIVE); UR UROBILINOGEN (Dip) NEGATIVE (NEGATIVE)
[2017-03-27] MEDS ORDERED: MECLIZINE 12.5 MG TAB PO ONE (17:30)
[2017-03-27 18:14] VITALS: BP 124/62; PULSE 70; RESP 20; TEMP 98.3
[2017-03-27] MEDS ORDERED: MECL12.574 PO (18:53)
== END 2017-03-27 19:47 | disposition home or self-care (01) ==
LOC: E/R 12:02
DX: R20.2 Paresthesia of skin (principal); R40.2252 Coma scale, best verbal response, oriented, at arrival to emergency department; R40.2142 Coma scale, eyes open, spontaneous, at arrival to emergency department; R40.2362 Coma scale, best motor response, obeys commands, at arrival to emergency department; R07.9 Chest pain, unspecified
CPT/HCPCS: 70450; 71010; 80053; 81001; 82550; 82553; 83880; 84484; 85025; 85610; 85730; 87086; 93005; 96374; 96375; 99285; J1885; J2405; J7030

== ENCOUNTER 2018-01-16 10:34 | Emergency (ER) | END 2018-01-16 15:00 | disposition home or self-care (01) ==